=== PATIENT | male | born 1940 | race Caucasian/White ===

== ENCOUNTER 2020-06-17 08:31 | Day surgery (SDC) | payer MEDICARE, BC ==
[2020-06-13 14:31] VITALS: BMI 25.1
[2020-06-17] MEDS ORDERED: Lidocaine 1% MPF 2 ML VIAL ONE (09:04)
[2020-06-17] MEDS ORDERED: PROPOFOL 40 ML ONE (09:53)
== END 2020-06-17 11:35 | disposition home or self-care (01) ==
LOC: CSHSDC 08:31
PROVIDERS: ATTEND Internal Medicine Gastroenterology
PROC: 0DJD8ZZ Inspection of Lower Intestinal Tract, Via Natural or Artificial Opening Endoscopic (ICD-10-PCS; principal; 2020-06-17)
DX: Z12.11 Encounter for screening for malignant neoplasm of colon (principal); Z85.038 Personal history of other malignant neoplasm of large intestine; K57.30 Diverticulosis of large intestine without perforation or abscess without bleeding
CPT/HCPCS: 82962; G0105; 36416; J2704

== ENCOUNTER 2021-01-11 14:31 | Emergency (ER) | payer MEDICARE, BC | END 2021-01-11 16:00 | disposition home or self-care (01) | LOC: CSHERS 14:31 | DX: N32.89 Other specified disorders of bladder (principal); E11.9 Type 2 diabetes mellitus without complications; I10 Essential (primary) hypertension; M10.9 Gout, unspecified; K21.9 Gastro-esophageal reflux disease without esophagitis | CPT/HCPCS: 51798 ==

== ENCOUNTER 2022-11-11 23:10 | Inpatient (IN) | payer MEDICARE, BC ==
[2022-11-12 00:08] LABS: ALT (SGPT) 94 U/L (8-55); AST (SGOT) 63 U/L (5-34); Albumin 4.2 g/dL (3.4-4.8); Alkaline Phosphatase 114 U/L (40-110); Anion Gap 11 mmol/L (10-20); BUN (Urea Nitrogen) 21 mg/dL (8.4-25.7); Bilirubin, Total 0.5 mg/dL (0.2-1.2); Calc. Creatinine Clearance 0 mL/min (70-130); Calcium 9.4 mg/dL (7.8-10.44); Carbon Dioxide 25 mmol/L (23-31); Chloride 96 mmol/L (98-107); Estimated GFR 85; Glucose 157 mg/dL (83-110); Potassium 4.3 mmol/L (3.5-5.1); Protein, Total 6.2 g/dL (5.8-8.1); Sodium 128 mmol/L (136-145)
[2022-11-12 00:18] LABS: #Eosinphils 0.1 10x3/uL (0.0-0.5); #Monocytes 0.6 10x3/uL (0.0-1.1); #Neutrophils 4.3 10x3/uL (1.5-8.4); %Basophils 0.6 % (0.0-2.0); %Eosinophils 1.9 % (0.0-6.0); %Lymphocytes 20.9 % (18.0-47.0); %Monocytes 9.8 % (0.0-10.0); %Neutrophils 66.6 % (40.0-75.0); Hematocrit 36.1 % (38.8-50.0); Hemoglobin 12.4 g/dL (13.5-17.5); Mean Corpuscular HGB CONC 34.3 g/dL (32.0-36.0); Mean Corpuscular Hemoglobin 33.5 pg (27.0-33.0); Mean Corpuscular Volume 97.6 fl (81.2-95.1); Mean Platelet Volume 10.1 fl (7.4-10.4); Platelet Count 212 10x3/uL (150-450); RBC Distribution Width 14.8 % (11.5-14.5); White Blood Cell (WBC) Count 6.4 10x3/uL (3.5-10.5)
[2022-11-12] MEDS ORDERED: Furosemide 40 MG/4 ML VIAL ONE (00:59)
[2022-11-12] MEDS ORDERED: Senokot S 8.6-50 MG TAB PO PRN (01:48)
[2022-11-12] MEDS ORDERED: HYDROcodone/Acetaminophen 5/325 mg Tablet PO PRN (01:48)
[2022-11-12] MEDS ORDERED: Ondansetron PF 4 MG/2 ML Vial IVP PRN (01:48)
[2022-11-12] MEDS ORDERED: Acetaminophen 325 MG TAB PO PRN (01:48)
[2022-11-12] MEDS ORDERED: Guaifenesin DM 100-10/5 ML UDCUP PO PRN (01:48)
[2022-11-12] MEDS ORDERED: Calcium Carbonate 500 MG ChewTAB PO PRN (01:48)
[2022-11-12 02:54] VITALS: BMI 27.8
[2022-11-12 04:47] LABS: Anion Gap 14 mmol/L (10-20); BUN (Urea Nitrogen) 21 mg/dL (8.4-25.7); Calc. Creatinine Clearance 82 mL/min (70-130); Calcium 9.8 mg/dL (7.8-10.44); Carbon Dioxide 26 mmol/L (23-31); Chloride 96 mmol/L (98-107); Estimated GFR 87; Glucose 123 mg/dL (83-110); Magnesium 1.5 mg/dL (1.6-2.6); Sodium 132 mmol/L (136-145)
[2022-11-12] MEDS ORDERED: Magnesium 2 GM/50 ML(in water) 2 GM in Premix Bag 1 BAG IVPB SCH ×2 (08:15→09:00)
[2022-11-12] MEDS: Empagliflozin 10 MG TAB PO SCH (08:30)
[2022-11-12] MEDS: metFORMIN 500 MG TAB PO SCH ×2 (08:30→16:28)
[2022-11-12] MEDS: Multivitamin W/ Minerals 1 TAB PO SCH (08:31)
[2022-11-12] MEDS: Multivitamin w/Zinc Stress 1 TAB PO SCH (08:31)
[2022-11-12] MEDS: Carvedilol 6.25 MG TAB PO SCH ×2 (08:31→16:28)
[2022-11-12] MEDS: Lisinopril 20 MG TAB PO SCH (08:31)
[2022-11-12] MEDS: CO Q-10 CAPSULE 50 MG PO SCH (08:31)
[2022-11-12] MEDS: Potassium Chloride 10 MEQ TAB PO SCH ×2 (08:31→16:28)
[2022-11-12] MEDS: Loratadine 10 MG TAB PO SCH (08:32)
[2022-11-12] MEDS: Aspirin 81 mg Enteric Coated Tablet PO SCH (08:32)
[2022-11-12] MEDS: Allopurinol 300 MG TAB PO SCH (08:32)
[2022-11-12] MEDS: Fluticasone Propionate Nasal Spray 16 gm Bottle NASAL SCH (08:32)
[2022-11-12] MEDS ORDERED: Timolol 0.5% Ophth Soln 5 ml Bottle EA EYE SCH (09:00)
[2022-11-12] MEDS ORDERED: Communication Order-Pharmacy FS SCH (15:15)
[2022-11-12] MEDS: Furosemide 20 MG/2 ML VIAL SLOW IVP SCH (16:29)
[2022-11-12] MEDS: Finasteride 5 MG TAB PO SCH (20:54)
[2022-11-12] MEDS: Atorvastatin Calcium 40 MG TAB PO SCH (20:55)
[2022-11-12] MEDS: Pregabalin 75 MG CAP PO SCH (20:55)
[2022-11-13 03:31] LABS: #Eosinphils 0.1 10x3/uL (0.0-0.5); #Monocytes 0.9 10x3/uL (0.0-1.1); #Neutrophils 3.8 10x3/uL (1.5-8.4); %Basophils 0.5 % (0.0-2.0); %Eosinophils 1.8 % (0.0-6.0); %Lymphocytes 22.2 % (18.0-47.0); %Monocytes 14.1 % (0.0-10.0); %Neutrophils 61.1 % (40.0-75.0); Hematocrit 34.7 % (38.8-50.0); Hemoglobin 11.8 g/dL (13.5-17.5); Mean Corpuscular Hemoglobin 32.8 pg (27.0-33.0); Mean Corpuscular Volume 96.4 fl (81.2-95.1); Platelet Count 200 10x3/uL (150-450); RBC Distribution Width 14.7 % (11.5-14.5); White Blood Cell (WBC) Count 6.2 10x3/uL (3.5-10.5)
[2022-11-13 03:39] LABS: PTT 30.4 sec (22.0-33.0); Prothrombin Time 11.1 sec (9.5-12.1)
[2022-11-13 03:47] LABS: ALT (SGPT) 65 U/L (8-55); AST (SGOT) 38 U/L (5-34); Albumin 3.7 g/dL (3.4-4.8); Alkaline Phosphatase 90 U/L (40-110); Anion Gap 11 mmol/L (10-20); BUN (Urea Nitrogen) 20 mg/dL (8.4-25.7); Bilirubin, Total 0.5 mg/dL (0.2-1.2); Calc. Creatinine Clearance 76 mL/min (70-130); Calcium 9.1 mg/dL (7.8-10.44); Carbon Dioxide 28 mmol/L (23-31); Chloride 100 mmol/L (98-107); Estimated GFR 85; Glucose 123 mg/dL (83-110); Magnesium 2.1 mg/dL (1.6-2.6); Potassium 3.7 mmol/L (3.5-5.1); Protein, Total 5.7 g/dL (5.8-8.1); Sodium 135 mmol/L (136-145)
[2022-11-13 03:56] LABS: Troponin I 0.013 ng/mL (< 0.028)
[2022-11-13 04:18] LABS: Cardiac Risk 2.1 (Less than 4.5); Cholesterol 136 mg/dl (< 200 Desired); HDL Cholesterol 65 mg/dL (>60 Neg Risk); LDL Cholesterol, Calculated 64 mg/dL; Triglycerides 34 mg/dL (Less than 150)
[2022-11-13] MEDS: Aspirin 81 mg Enteric Coated Tablet PO SCH (05:47)
[2022-11-13] MEDS: Multivitamin W/ Minerals 1 TAB PO SCH (05:47)
[2022-11-13] MEDS: Carvedilol 6.25 MG TAB PO SCH ×2 (05:47→18:33)
[2022-11-13] MEDS: Lisinopril 20 MG TAB PO SCH (05:48)
[2022-11-13] MEDS: Potassium Chloride 10 MEQ TAB PO SCH ×2 (05:48→18:33)
[2022-11-13] MEDS: Loratadine 10 MG TAB PO SCH (05:48)
[2022-11-13] MEDS: CO Q-10 CAPSULE 50 MG PO SCH (05:48)
[2022-11-13] MEDS: Allopurinol 300 MG TAB PO SCH (05:49)
[2022-11-13] MEDS: Furosemide 20 MG/2 ML VIAL SLOW IVP SCH (05:49)
[2022-11-13] MEDS: Multivitamin w/Zinc Stress 1 TAB PO SCH (05:49)
[2022-11-13] MEDS ORDERED: Verapamil 5 MG/2 ML VIAL ONE (07:47)
[2022-11-13] MEDS ORDERED: Lidocaine 1% (PF) 30 ML VIAL ONE (07:47)
[2022-11-13] MEDS ORDERED: Adenosine 6 MG/2 ML VIAL ONE (07:47)
[2022-11-13] MEDS ORDERED: Nitroglycerin 50 MG/250 ML BOT 250 ML ONE (07:47)
[2022-11-13] MEDS ORDERED: Heparin 10,000 UNITS/ 10 ML VIAL ONE (07:47)
[2022-11-13] MEDS ORDERED: fentaNYL 50 mcg/mL 1 mL Vial ONE (07:48)
[2022-11-13] MEDS ORDERED: Midazolam HCl 2 mg/2 ml Vial ONE (07:48)
[2022-11-13] MEDS: Empagliflozin 10 MG TAB PO SCH (08:32)
[2022-11-13] MEDS: Fluticasone Propionate Nasal Spray 16 gm Bottle NASAL SCH ×2 (08:32→21:33)
[2022-11-13] MEDS: metFORMIN 500 MG TAB PO SCH ×2 (08:32→18:33)
[2022-11-13] MEDS ORDERED: Acetaminophen/Codeine 30-300mg Tablet PO PRN ×2 (09:55)
[2022-11-13] MEDS ORDERED: Sodium Chloride 0.9% 200 ML IV PRN (09:55)
[2022-11-13] MEDS ORDERED: Nitroglycerin 0.4 MG TAB (25 Tab Bottle) SL PRN (09:55)
[2022-11-13] MEDS ORDERED: Iopamidol 300 61% 100 ML VIAL FS ONE (14:22)
[2022-11-13] MEDS: Pregabalin 75 MG CAP PO SCH (21:09)
[2022-11-13] MEDS: Atorvastatin Calcium 40 MG TAB PO SCH (21:09)
[2022-11-13] MEDS: Finasteride 5 MG TAB PO SCH ×2 (21:11→21:23)
[2022-11-14] MEDS: CO Q-10 CAPSULE 50 MG PO SCH (10:20)
[2022-11-14] MEDS: Multivitamin w/Zinc Stress 1 TAB PO SCH (10:20)
[2022-11-14] MEDS: Multivitamin W/ Minerals 1 TAB PO SCH (10:21)
[2022-11-14] MEDS: Lisinopril 20 MG TAB PO SCH (10:21)
[2022-11-14] MEDS: metFORMIN 500 MG TAB PO SCH (10:21)
[2022-11-14] MEDS: Potassium Chloride 10 MEQ TAB PO SCH (10:21)
[2022-11-14] MEDS: Empagliflozin 10 MG TAB PO SCH (10:22)
[2022-11-14] MEDS: Carvedilol 6.25 MG TAB PO SCH (10:24)
[2022-11-14] MEDS: Allopurinol 300 MG TAB PO SCH (10:24)
[2022-11-14] MEDS: Loratadine 10 MG TAB PO SCH (10:24)
[2022-11-14] MEDS: Fluticasone Propionate Nasal Spray 16 gm Bottle NASAL SCH (10:25)
[2022-11-14] MEDS ORDERED: Furosemide 40 MG TAB PO SCH (11:00)
[2022-11-14 14:19] VITALS: BP 108/64; TEMP 97.6
== END 2022-11-14 14:49 | disposition home or self-care (01) | DRG 286 ==
LOC: CSHERS 23:10 → CSHTELE 11-12 02:47
PROVIDERS: ADMIT Student in an Organized Health Care Education/Training Program; ATTEND Nurse Practitioner Family
PROC: 4A023N7 Measurement of Cardiac Sampling and Pressure, Left Heart, Percutaneous Approach (ICD-10-PCS; principal; 2022-11-13)
PROC: B2151ZZ Fluoroscopy of Left Heart using Low Osmolar Contrast (ICD-10-PCS; 2022-11-13)
PROC: B2111ZZ Fluoroscopy of Multiple Coronary Arteries using Low Osmolar Contrast (ICD-10-PCS; 2022-11-13)
DX: I11.0 Hypertensive heart disease with heart failure (principal); I50.23 Acute on chronic systolic (congestive) heart failure; E87.1 Hypo-osmolality and hyponatremia; I35.0 Nonrheumatic aortic (valve) stenosis; E78.5 Hyperlipidemia, unspecified; E11.9 Type 2 diabetes mellitus without complications; M10.9 Gout, unspecified; M54.12 Radiculopathy, cervical region; J30.2 Other seasonal allergic rhinitis; H40.9 Unspecified glaucoma; N40.0 Benign prostatic hyperplasia without lower urinary tract symptoms; K21.9 Gastro-esophageal reflux disease without esophagitis; E83.42 Hypomagnesemia; D64.9 Anemia, unspecified; I25.10 Atherosclerotic heart disease of native coronary artery without angina pectoris; Z98.890 Other specified postprocedural states; Z82.49 Family history of ischemic heart disease and other diseases of the circulatory system; Z87.891 Personal history of nicotine dependence; Z79.82 Long term (current) use of aspirin; Z79.899 Other long term (current) drug therapy; Z90.89 Acquired absence of other organs; Z79.84 Long term (current) use of oral hypoglycemic drugs; Z85.038 Personal history of other malignant neoplasm of large intestine; I45.10 Unspecified right bundle-branch block; R53.81 Other malaise
CPT/HCPCS: 36415; 71045; 80048; 80053; 80061; 80202; 83735; 83880; 84443; 84484; 85025; 85610; 85730; 93005; 93306; 93458; 96374; 99152; 99153; C1769; C1887; C1894; J0153; J1644; J1650; J1940; J2001; J2250; J3010; J3475; Q9967

== ENCOUNTER 2024-09-27 00:47 | Observation (INO) | payer MEDICARE ==
[2024-09-27] MEDS ORDERED: hydrALAZINE 20 MG/ML VIAL ONE (01:49)
[2024-09-27] MEDS ORDERED: Prochlorperazine 10 MG/2 ML VIAL ONE (01:49)
[2024-09-27] MEDS ORDERED: diphenhydrAMINE 50 MG/ML VIAL ONE (01:49)
[2024-09-27] MEDS ORDERED: Acetaminophen 500 MG TAB ONE (01:50)
[2024-09-27] MEDS ORDERED: Famotidine/PF 20 mg/2ml Vial ONE (02:28)
[2024-09-27] MEDS ORDERED: Mag-Al 1200 mg/1200 mg/30 ML UDCUP ONE (02:28)
[2024-09-27] MEDS ORDERED: Lidocaine Viscous Sol 2% 15 ml UD Cup ONE (02:28)
[2024-09-27 03:04] LABS: INR-International Normal Ratio 0.9; PTT 30.0 sec (22.0-33.0); Prothrombin Time 10.4 sec (9.5-12.1)
[2024-09-27] MEDS ORDERED: Nitroglycerin 2% Ointment 1 INCH/1 GM Packet ONE (03:13)
[2024-09-27 03:22] LABS: ALT (SGPT) 31 U/L (Less than 45); AST (SGOT) 35 U/L (11-34); Albumin 4.3 g/dL (3.1-4.5); Alkaline Phosphatase 93 U/L (40-110); Anion Gap 16 mmol/L (10-20); BUN (Urea Nitrogen) 22 mg/dL (8.4-25.7); Bilirubin, Total 0.6 mg/dL (0.3-1.2); Calc. Creatinine Clearance 0 mL/min (70-130); Calcium 10.3 mg/dL (7.8-10.44); Carbon Dioxide 23 mmol/L (23-31); Chloride 98 mmol/L (98-107); Globulin 3.1 g/dL (2.4-3.5); Glucose 160 mg/dL (83-110); Magnesium 1.5 mg/dL (1.6-2.6); Potassium 4.0 mmol/L (3.5-5.1); Sodium 133 mmol/L (136-145)
[2024-09-27 03:28] LABS: Troponin I Less than 0.010 ng/mL (< 0.028)
[2024-09-27 03:42] LABS: #Basophils 0.03 10x3/uL (0.0-0.2); #Eosinophils 0.11 10x3/uL (0.0-0.5); #Monocytes 0.57 10x3/uL (0.0-1.1); #Neutrophils 4.97 10x3/uL (1.5-8.4); %Basophils 0.4 % (0.0-2.0); %Eosinophils 1.6 % (0.0-6.0); %Lymphocytes 18.7 % (18.0-47.0); %Monocytes 8.1 % (0.0-10.0); %Neutrophils 70.8 % (40.0-75.0); Hematocrit 38.3 % (38.8-50.0); Hemoglobin 13.1 g/dL (13.5-17.5); Mean Corpuscular Hemoglobin 33.3 pg (27.0-33.0); Mean Corpuscular Volume 97.5 fL (81.2-95.1); Platelet Count 208 10x3/uL (150-450); Red Blood Cell (RBC) Count 3.93 10x6/uL (4.32-5.72); White Blood Cell (WBC) Count 7.02 10x3/uL (3.5-10.5)
[2024-09-27] MEDS ORDERED: Ondansetron PF 4 MG/2 ML Vial IVP PRN (04:14)
[2024-09-27] MEDS ORDERED: Dextrose 50% Abboject 50 ML SYRINGE SLOW IVP PRN (04:17)
[2024-09-27] MEDS ORDERED: Glucagon 1 MG/ML KIT IM PRN (04:17)
[2024-09-27] MEDS ORDERED: Ketorolac Tromethamine 30 MG (1 mL) VIAL ONE (04:22)
[2024-09-27] MEDS ORDERED: Magnesium 2 GM/50 ML BAG (IN WATER) ONE (04:22)
[2024-09-27 08:06] VITALS: BMI 24.7
[2024-09-27] MEDS: Lisinopril 20 MG TAB PO SCH (08:09)
[2024-09-27] MEDS: Carvedilol 6.25 MG TAB PO SCH (08:09)
[2024-09-27] MEDS ORDERED: Artificial Tear Ophth Sol 15 ML BOT EA EYE PRN (13:47)
[2024-09-27] MEDS: Magnesium Oxide 400 MG TAB PO SCH (14:37)
[2024-09-27] MEDS: metFORMIN 500 MG TAB PO SCH (17:57)
[2024-09-27] MEDS: Famotidine 20 MG TAB PO SCH (21:26)
[2024-09-27] MEDS: Acetaminophen 325 MG TAB PO PRN (22:24)
[2024-09-28 04:23] LABS: #Basophils Less than 0.03 10x3/uL (0.0-0.2); #Eosinophils 0.14 10x3/uL (0.0-0.5); #Monocytes 0.83 10x3/uL (0.0-1.1); #Neutrophils 3.70 10x3/uL (1.5-8.4); %Basophils 0.3 % (0.0-2.0); %Eosinophils 1.9 % (0.0-6.0); %Lymphocytes 35.0 % (18.0-47.0); %Monocytes 11.4 % (0.0-10.0); %Neutrophils 51.0 % (40.0-75.0); Hematocrit 34.6 % (38.8-50.0); Hemoglobin 12.2 g/dL (13.5-17.5); Mean Corpuscular Hemoglobin 33.5 pg (27.0-33.0); Mean Corpuscular Volume 95.1 fL (81.2-95.1); Platelet Count 191 10x3/uL (150-450); Red Blood Cell (RBC) Count 3.64 10x6/uL (4.32-5.72); White Blood Cell (WBC) Count 7.26 10x3/uL (3.5-10.5)
[2024-09-28 04:37] LABS: Anion Gap 13 mmol/L (10-20); BUN (Urea Nitrogen) 27 mg/dL (8.4-25.7); Calc. Creatinine Clearance 63 mL/min (70-130); Calcium 9.0 mg/dL (7.8-10.44); Carbon Dioxide 25 mmol/L (23-31); Chloride 94 mmol/L (98-107); Glucose 135 mg/dL (83-110); Magnesium 1.8 mg/dL (1.6-2.6); Potassium 4.3 mmol/L (3.5-5.1); Sodium 128 mmol/L (136-145)
[2024-09-28] MEDS: Aspirin 81 mg Enteric Coated Tablet PO SCH (09:02)
[2024-09-28] MEDS: Magnesium Oxide 400 MG TAB PO SCH (09:02)
[2024-09-28 12:15] VITALS: BP 114/59; TEMP 98
== END 2024-09-28 12:39 | disposition home or self-care (01) ==
LOC: CSHERS 00:47 → CSHERHOLD 04:03 → CSHTELE 07:52
PROVIDERS: ADMIT Internal Medicine; ATTEND Internal Medicine
DX: I16.0 Hypertensive urgency (principal); I11.0 Hypertensive heart disease with heart failure; I50.30 Unspecified diastolic (congestive) heart failure; E11.51 Type 2 diabetes mellitus with diabetic peripheral angiopathy without gangrene; E78.5 Hyperlipidemia, unspecified; E83.42 Hypomagnesemia; G25.81 Restless legs syndrome; M10.9 Gout, unspecified; Z85.038 Personal history of other malignant neoplasm of large intestine; Z87.891 Personal history of nicotine dependence; Z90.49 Acquired absence of other specified parts of digestive tract; Z90.89 Acquired absence of other organs; Z79.82 Long term (current) use of aspirin; Z79.84 Long term (current) use of oral hypoglycemic drugs; Z79.899 Other long term (current) drug therapy
CPT/HCPCS: 70450; 80048; 80053; 82962 ×2; 83735 ×2; 83880; 84484; 85025 ×2; 85610; 85730; 93005; 94760; 94762; 96374; 96375; 99285; J0360; J0780; J1200; J1308; J1885; J3475; 36415; 36416; G0378

== ENCOUNTER 2024-11-20 14:59 | Outpatient (CLI) | payer MEDICARE | END 2024-11-20 15:00 | disposition home or self-care (01) | LOC: CSHRAD 14:59 | DX: R07.81 Pleurodynia (principal) ==